=== PATIENT | female | born 1975 | race Asian ===

== ENCOUNTER 2023-03-10 04:56 | Emergency (ER) | payer OTHER ==
[~2023-03-10] VITALS: Ht 160 cm; Wt 102.7 kg
[2023-03-10 05:20] VITALS: O2SAT 98
[2023-03-10 06:03] LABS: CHLORIDE 105 mEq/L (98-107); INDEX HEMOLYSI 1 (1-3); INDEX ICTERIC 1 (1-4); INDEX LIPEMIC 1 (1-3); POTASSIUM 3.6 mEq/L (3.5-5.1); SODIUM 137 mEq/L (136-145)
[2023-03-10 06:04] LABS: BASOPHILS % 0.5 % (0.0-2.0); EOSINOPHILS % 2.7 % (0.0-5.0); HEMATOCRIT. 43.6 % (36.0-48.0); HEMOGLOBIN. 14.9 g/dL (12.0-16.0); LYMPHOCYTES % 22.8 % (20.0-50.0); MEAN CORPUSCULAR HEMOGLOBIN 28.9 pg (28.0-32.0); MEAN CORPUSCULAR HGB CONC 34.3 g/dL (31.0-37.0); MEAN CORPUSCULAR VOLUME 84.3 fL (81.0-99.0); MEAN PLATELET VOLUME 8.9 fl (7.4-10.4); MONOCYTES % 6.1 % (2.0-8.0); NEUTROPHILS % 67.9 % (40.0-76.0); PLATELET 299 x1000/uL (130-400); RED BLOOD CELL COUNT 5.17 mill/uL (4.2-5.4); RED CELL DISTRIBUTION WIDTH 14.4 % (11.6-14.6); WHITE BLOOD COUNT 10.3 x1000/uL (4.5-11.0)
[2023-03-10 06:12] LABS: HCG SCREEN NEGATIVE
[2023-03-10 06:15] LABS: ALANINE AMINOTRANSFERASE 46 IU/L (13-61); ALBUMIN 3.6 g/dL (3.4-5.0); ASPARTATE AMINOTRANSFERASE 31 IU/L (15-37); BILIRUBIN TOTAL 0.7 mg/dL (0.1-1.0); CALCIUM 8.9 mg/dL (8.5-10.1); CARBON DIOXIDE 31 mEq/L (21-32); CREATININE 0.6 mg/dL (0.6-1.3); GLUCOSE 114 mg/dL (70-105); NT PRO B-TYPE NATRIURETIC PEP 291 pg/mL (5-125); PROTEIN TOTAL 8.4 g/dL (6.0-8.3); TROPONIN I HIGH SENSITIVITY 17 ng/L (<54); UREA NITROGEN BLOOD 6 mg/dL (7-21)
[2023-03-10] MEDS ORDERED: MORPHINE SULFATE 4 MG/ML CPJ (NOT FOR IM USE) IV ONE (06:30)
[2023-03-10] MEDS ORDERED: HYDRALAZINE 20MG/ML VIAL IV ONE (12:45)
[2023-03-10 14:20] VITALS: BP 171/108; PULSE 89; RESP 16; TEMP 98.2
== END 2023-03-10 15:05 | disposition left against medical advice (07) ==
LOC: ER 04:56 → EDBEDREQ 13:49 → EDBEDREQTM 13:49 → CANBEDREQ 14:50 → ER 15:05
DX: R07.89 Other chest pain (principal); R00.0 Tachycardia, unspecified; Z90.710 Acquired absence of both cervix and uterus
CPT/HCPCS: 80053; 81025; 84703; 83880; 85025; 84484; 36415; 71045; 93005; 96374; 99285; J0360; Z7610 ×5